=== PATIENT | female | born 1950 | race Caucasian/White ===

== ENCOUNTER 2019-05-21 00:30 | Outpatient (CLI) | payer MEDICARE, SELFPAY ==
--- NOTE | 2019-05-21 14:09 | DI.US_ITS ---
SYMPTOM/DIAGNOSIS: RUQ BD PAIN, R10.11 ABDOMINAL ULTRASOUND: Routine examination. Comparison CT scan is 12/09/14 The aorta is unremarkable. The IVC is unremarkable. The liver measures 15.1 cm in length. There is a 2.8 x 1.7 x 1.5 cm avascular hyperechoic region in the medial aspect of the right lobe of the liver. No other hepatic mass is seen sonographically. The gallbladder is unremarkable. There is a negative sonographic Flor's sign. The common duct is within normal limits at 4.6 mm. The pancreas and spleen are unremarkable. There are bilateral simple renal cysts. There is a 5.8 x 4.7 x 5.3 cm simple cyst in the superior pole of the right kidney. There is a 3.2 x 2.4 z 3.6 cm simple cyst in the left renal pelvis. These are identified on the CT scan of the abdomen from 12/09/14. IMPRESSION: 1. 2.8 cm hyperechoic avascular region in the liver. This may represent a benign lesion such as an hepatic hemangioma. Focal fatty infiltration cannot be excluded. CT scan of the abdomen without and with contrast should be considered for further evaluation. 2. Bilateral simple renal cysts.
== END 2019-05-21 00:50 ==
PROVIDERS: PCP Nurse Practitioner Family; Visit Provider Nurse Practitioner Family
DX: R10.11 Right upper quadrant pain (principal); K76.89 Other specified diseases of liver; N28.1 Cyst of kidney, acquired
CPT/HCPCS: 76700

== ENCOUNTER 2019-05-21 08:53 | Outpatient (REF) | payer MEDICARE, SELFPAY ==
[2019-05-21 22:10] LABS: ALT 28 U/L (12-78); AST 19 U/L (15-37); Albumin 3.7 g/dL (3.4-5.0); Alkaline Phosphatase 70 U/L (46-116); Anion Gap 8.4 mmol/L (3-11); BUN 17 mg/dL (7-18); Bilirubin, Direct 0.12 mg/dL (0.00-0.20); Bilirubin, Total 0.5 mg/dL (0.2-1.0); CO2 28.6 mmol/L (21.0-32.0); CREATININE 0.84 mg/dL (0.55-1.02); Calcium 9.5 mg/dL (8.5-10.1); Chloride 106 mmol/L (98-107); Glucose 75 mg/dL (70-100); Potassium 4.3 mmol/L (3.5-5.1); Sodium 143 mmol/L (136-145); Total Protein 7.3 g/dL (6.4-8.2)
[2019-05-21 22:28] LABS: Calculated LDL 143 mg/dL; Cholesterol 214 mg/dL (50-200); HDL Cholesterol 61 mg/dL (40-60); Triglyceride 53 mg/dL (30-150)
== END 2019-05-21 09:13 ==
LOC: NCHCN 08:53
PROVIDERS: PCP Nurse Practitioner Family; Visit Provider Nurse Practitioner Family
DX: R10.11 Right upper quadrant pain (principal); I10 Essential (primary) hypertension; R79.89 Other specified abnormal findings of blood chemistry; R05 Cough
CPT/HCPCS: 80048; 80061; 80076; 83721

== ENCOUNTER 2019-05-29 00:56 | Outpatient (CLI) | payer MEDICARE, SELFPAY ==
--- NOTE | 2019-05-29 13:00 | DI.CT_ITS ---
SYMPTOMS/DIAGNOSIS: RIGHT UPPER QUADRANT ABDOMINAL PAIN, R10.[address]: Comparison is made with ultrasound dated April, and abdominal CT of November,. The ultrasound showed a hyperechoic area measuring 2.8 x 1.7 x 1.5 cm. No abnormality was demonstrated on the previous CT. A 7 mm cyst is noted at the inferior edge of the medial segment of the left lobe of the liver. A few other tiny cysts less than 5 mm are visible. No mass is identified. The gallbladder, spleen, adrenals and pancreas are unremarkable. There is a cyst at the upper pole of the left kidney and parapelvic cysts involving the left kidney. There is a stone in the mid right kidney. There is no hydronephrosis of either kidney. The bladder, uterus and ovaries are unremarkable. There is diverticulosis most prominent in the sigmoid region. There is no evidence of diverticulitis. IMPRESSION: No significant liver mass is identified as was seen by ultrasound. The findings on ultrasound could be artifactual. There is an incidental 7 mm cyst.
[2019-05-29] MEDS: Omnipaque 350 MG/ML 100 ML BTL IJ (14:35)
[2019-05-29] MEDS: Omnipaque 350 MG/ML 50 ML BTL IJ (14:36)
[2019-05-29] MEDS: Breeza Beverage 473 ML BTL PO (14:37)
== END 2019-05-29 01:16 ==
PROVIDERS: PCP Nurse Practitioner Family; Visit Provider Nurse Practitioner Family
DX: R10.11 Right upper quadrant pain (principal); K76.89 Other specified diseases of liver; N28.1 Cyst of kidney, acquired; K57.30 Diverticulosis of large intestine without perforation or abscess without bleeding
CPT/HCPCS: 74177; J3490; Q9967

== ENCOUNTER 2019-12-31 11:40 | Outpatient (REF) | payer MEDICARE, SELFPAY ==
[2019-12-31 19:42] LABS: Calculated LDL 153 mg/dL (<100); Cholesterol 224 mg/dL (<200); Glucose 96 mg/dL (74-106); HDL Cholesterol 62 mg/dL (40-60); Triglyceride 49 mg/dL (<150)
[2020-01-02 12:24] LABS: Hepatitis C Ab w Rflx HCV PCR Negative (Negative)
== END 2019-12-31 12:00 ==
LOC: NCHCN 11:40
PROVIDERS: PCP Nurse Practitioner Family; Visit Provider Nurse Practitioner Family
DX: E78.5 Hyperlipidemia, unspecified (principal); Z11.59 Encounter for screening for other viral diseases
CPT/HCPCS: 80061; 82947; 86803

== ENCOUNTER 2020-05-01 00:16 | Outpatient (CLI) | payer MEDICARE, SELFPAY ==
--- NOTE | 2020-05-01 | DI.DEXA_ITS ---
EXAM: XR DEXA BONE DENSITY W/WO CESAR CLINICAL HISTORY: ASYMPTOMATIC POSTMENOPAUSAL, Z78.0 TECHNIQUE: COMPARISON: No exams were available for comparison FINDINGS: DEXA scan was performed according to the usual protocol. Please see the accompanying data sheets. F indings for lumbar spine scanning are T-score -2.2. Findings for left forearm scanning are T-score -2.8. Findings for left hip scanning are T-score -1.7 left femoral neck T-score -1.3. IMPRESSION: Findings are consistent with osteoporosis according to the WHO criteria. The lateral vertebral scanogram shows no evidence of a vertebral compression fracture.
== END 2020-05-01 00:36 ==
PROVIDERS: PCP Nurse Practitioner Family; Visit Provider Nurse Practitioner Family
DX: M81.0 Age-related osteoporosis without current pathological fracture (principal); Z78.0 Asymptomatic menopausal state
CPT/HCPCS: 77080

== ENCOUNTER 2020-06-23 08:36 | Outpatient (REF) | payer MEDICARE, SELFPAY ==
[2020-06-23 20:52] LABS: ALT 31 U/L (14-59); AST 25 U/L (15-37); Albumin 3.9 g/dL (3.4-5.0); Alkaline Phosphatase 76 U/L (46-116); Bilirubin, Total 0.4 mg/dL (0.2-1.0); Calculated LDL 128 mg/dL (<100); Cholesterol 201 mg/dL (<200); HDL Cholesterol 62 mg/dL (40-60); Total Protein 7.7 g/dL (6.4-8.2); Triglyceride 56 mg/dL (<150)
== END 2020-06-23 08:56 ==
LOC: NCHCN 08:36
PROVIDERS: PCP Nurse Practitioner Family; Visit Provider Nurse Practitioner Family
DX: E78.5 Hyperlipidemia, unspecified (principal); K76.89 Other specified diseases of liver
CPT/HCPCS: 80061; 80076

== ENCOUNTER 2020-07-28 00:48 | Outpatient (CLI) | payer MEDICARE, SELFPAY ==
--- NOTE | 2020-07-28 | DI.MAMMO_ITS ---
EXAM: MG MAMMO SCREENING CLINICAL HISTORY: SCREENING, TECHNIQUE: Mammograms were interpreted according to the usual protocol including computer analysis w [facility] CAD system, tomosynthesis and C-view imaging. COMPARISON: FINDINGS: The breasts are heterogeneously dense. There is a new mass in the 12 o'clock position in the left br east measuring about 12 millimeters in diameter which appears fairly well-circumscribed on standard i mages. Couple of smaller well-circumscribed nodules are also seen adjacent to this mass. Findings w ere not present on prior mammogram April 2018 or previous scans. No additional new mass identified. Additional mammographic views of the left breast and left breast ultrasound are requested for charact erization of the new left breast mass to assess the need for biopsy. IMPRESSION: New well-circumscribed 12 millimeter left breast mass with small well-circumscribed satellite nodules . Cc and MLO spot compression views of the left breast and left breast ultrasound recommended for fu rther evaluation. BI-RADS Cat 0 - Assessment Incomplete: Need additional imaging evaluation Breast Density - Category C - Heterogeneously dense
== END 2020-07-28 01:08 ==
PROVIDERS: PCP Nurse Practitioner Family; Visit Provider Nurse Practitioner Family
DX: Z12.31 Encounter for screening mammogram for malignant neoplasm of breast (principal); N63.25 Unspecified lump in the left breast, overlapping quadrants
CPT/HCPCS: 77063; 77067

== ENCOUNTER 2020-07-30 00:43 | Outpatient (CLI) | payer MEDICARE, SELFPAY ==
--- NOTE | 2020-07-30 | DI.US_ITS ---
EXAM: MG MAMMO SCREEN CALL BACK UNI CLINICAL HISTORY: NEW MASS 12 O'CLOCK IN LT BREAST MEASURING ABOUT 12 MILLIMETERS TECHNIQUE: Mammograms were interpreted according to the usual protocol including computer analysis w [employer] CAD system, tomosynthesis and C-view imaging. COMPARISON: FINDINGS: Additional mammographic views of the left breast and left breast ultrasound are interpreted in conjun ction. These examinations were obtained to evaluate mass with couple of small satellite nodules seen in the 12 o'clock position in the breast on recent mammogram. Additional mammographic view is confi rm well-circumscribed masses. Breast ultrasound shows a group of cysts, the largest measuring about 11 millimeters in greatest diameter, corresponding to the mammographically identified masses. These all appear to be simple cysts. No Doppler abnormality seen. IMPRESSION: Multiple left breast cysts as described above. No solid mass identified ultrasonographically. I kailey hutchinson suggest that follow-up mammogram be obtained in 12 months. BI-RADS Category 2 - Benign Findings Breast Density - Category C - Heterogeneously dense
== END 2020-07-30 01:03 ==
PROVIDERS: PCP Nurse Practitioner Family; Visit Provider Nurse Practitioner Family
DX: R92.8 Other abnormal and inconclusive findings on diagnostic imaging of breast (principal); N63.25 Unspecified lump in the left breast, overlapping quadrants
CPT/HCPCS: 76642; 77063; 77067

== ENCOUNTER 2021-03-02 13:57 | Outpatient (REF) | payer MEDICARE, SELFPAY ==
[2021-03-02 16:42] LABS: ALT 30 U/L (14-59); AST 20 U/L (15-37); Albumin 4.1 g/dL (3.4-5.0); Alkaline Phosphatase 74 U/L (46-116); Anion Gap 9.5 mmol/L (3-11); BUN 19 mg/dL (7-18); Bilirubin, Total 0.5 mg/dL (0.2-1.0); CO2 28.5 mmol/L (21.0-32.0); Calcium 9.6 mg/dL (8.5-10.1); Calculated LDL 170 mg/dL (<100); Chloride 104 mmol/L (98-107); Cholesterol 246 mg/dL (<200); Estimated GFR 54.66 (mL/min/1.73m2); Glucose 87 mg/dL (74-106); HDL Cholesterol 63 mg/dL (40-60); Potassium 4.3 mmol/L (3.5-5.1); Sodium 142 mmol/L (136-145); Total Protein 7.8 g/dL (6.4-8.2); Triglyceride 67 mg/dL (<150)
== END 2021-03-02 13:58 | disposition home or self-care (01) ==
LOC: NCHCN 13:57
PROVIDERS: PCP Nurse Practitioner Family; Visit Provider Nurse Practitioner Family
DX: E78.5 Hyperlipidemia, unspecified (principal); M79.18 Myalgia, other site; M81.0 Age-related osteoporosis without current pathological fracture
CPT/HCPCS: 80053; 80061

== ENCOUNTER 2021-05-25 11:40 | Outpatient (REF) | payer MEDICARE, SELFPAY ==
[2021-05-25 15:03] LABS: ALT 26 U/L (14-59); AST 20 U/L (15-37); HDL Cholesterol 64 mg/dL (40-60); LDL CHOLESTEROL 140 mg/dL (<100)
[2021-05-25 15:18] LABS: Creatine Kinase 93 U/L (26-192)
[2021-05-25 17:02] LABS: Vitamin D 25 Total 57.9 ng/mL (30-100)
== END 2021-05-25 11:41 | disposition home or self-care (01) ==
LOC: NCHCN 11:40
PROVIDERS: PCP Nurse Practitioner Family; Visit Provider Nurse Practitioner Family
DX: E78.5 Hyperlipidemia, unspecified (principal); M81.0 Age-related osteoporosis without current pathological fracture
CPT/HCPCS: 82306; 82550; 83721; 83718; 84450; 84460

== ENCOUNTER 2021-08-04 01:05 | Outpatient (CLI) | payer MEDICARE, SELFPAY ==
--- NOTE | 2021-08-04 | DI.MAMMO_ITS ---
Exam(s) MAMMO SCREENING EXAM: MAMMO SCREENING CLINICAL HISTORY: SCREENING,Z12.39. TECHNIQUE: Bilateral full field digital CC and MLO mammographic images were obtained with 3D tomosyn thesis and utilizing computer aided detection (CAD). COMPARISON: Prior mammograms dating back to 2011, the most recent being July 2020. Breast ultras ound 07/30/2020 was also reviewed. Study revealed left breast cysts. FINDINGS: The previously present 12 o'clock position nodule has significantly decreased in size, further eviden ce that it is a benign cyst. The larger of the 2 densities at this location (12 o'clock position) has decreased in size and the ot her adjacent smaller nodule is unchanged in size. These were both demonstrated to be adjacent cysts on the ultrasound 1 year ago. There are no new spiculated masses nor malignant appearing microcalcification groups. There is no significant architectural distortion nor skin thickening-retraction. IMPRESSION: Benign findings. No radiographic evidence of malignancy. BI-RADS Category 2 - Benign Findings Breast Density - Category B - Scattered areas of fibroglandular density Breast density Category C or D implies that the patient has dense breast tissue. Dense breast tissue can make it harder to find cancer on a mammogram. Dense breast tissue is also associated with an incr eased risk of breast cancer. This information about the result of the mammogram report was provided to the patient to raise their awareness. Use this report when you speak with the patient about their risks for breast cancer, which includes their family history. At that time, you may recommend additional screening tests (Ultrasoun d or MRI) as these tests may add significant information. A negative radiographic report should not delay biopsy if a dominant or clinically suspicious mass is present. Up to ten percent of cancers are not identified on mammography. A negative report may reinforce clinical impression. Adenosis and dense breasts may obscure an underlying neoplasm. False positive reports average 6 to 10%. Patient will receive a letter notifying them of these results.
== END 2021-08-04 01:25 ==
PROVIDERS: PCP Nurse Practitioner Family; Visit Provider Nurse Practitioner Family
DX: Z12.31 Encounter for screening mammogram for malignant neoplasm of breast (principal)
CPT/HCPCS: 77063; 77067

== ENCOUNTER 2022-08-10 22:50 | Outpatient (REF) | payer MEDICARE, SELFPAY ==
[2022-08-10 20:29] LABS: Anion Gap 10.3 mmol/L (3-11); BUN 17 mg/dL (7-18); CO2 25.7 mmol/L (21.0-32.0); CREATININE 0.9 mg/dL (0.55-1.02); Calcium 9.7 mg/dL (8.5-10.1); Calculated LDL 127 mg/dL (<100); Chloride 105 mmol/L (98-107); Cholesterol 221 mg/dL (<200); Estimated GFR 67.92 (mL/min/1.73m2); Glucose 82 mg/dL (74-106); HDL Cholesterol 67 mg/dL (40-60); Potassium 4.1 mmol/L (3.5-5.1); Sodium 141 mmol/L (136-145); Triglyceride 139 mg/dL (<150)
== END 2022-08-10 22:51 | disposition home or self-care (01) ==
LOC: NCHCN 22:50
PROVIDERS: PCP Nurse Practitioner Family; Visit Provider Nurse Practitioner Family
DX: I10 Essential (primary) hypertension (principal); E78.5 Hyperlipidemia, unspecified
CPT/HCPCS: 80048; 80061

== ENCOUNTER → 2022-09-14 01:53 | Outpatient (CLI) | payer MEDICARE, SELFPAY ==
--- NOTE | 2022-09-14 08:00 | DI.MAMMO_ITS ---
Exam(s) MAMMO SCREENING EXAM: MAMMO SCREENING CLINICAL HISTORY: SCREENING, Z12.31 TECHNIQUE: Bilateral full field digital CC and MLO mammographic images were obtained with 3D tomosyn thesis and utilizing computer aided detection (CAD). COMPARISON: Available for comparison. FINDINGS: Masses/Architectural Distortion: None seen. Microcalcifications: No suspicious pleomorphic-type are seen. Skin Thickening/Nipple Retraction: None. IMPRESSION: 1. No significant interval change with no specific features of malignancy noted. 2. Unless there is more urgent need, screening mammography is recommended, as per [employer] guidelines. BI-RADS Category 1 - Negative Breast Density - Category B - Scattered areas of fibroglandular density Breast density category C or D implies that the patient has dense breast tissue. Dense breast tissue is very common and is not abnormal but dense breast tissue can make it harder to find cancer on a ma mmogram. Also, dense breast tissue may increase their breast cancer risk. This information about the result of the mammogram report was provided to the patient to raise their awareness. Use this report when you speak with the patient about their risks for breast cancer, which includes their family hist ory. At that time, you may recommend for more screening tests (Ultrasound or MRI) as they might be us eful based on their risk. A negative radiographic report should not delay biopsy if a dominant or clinically suspicious mass is present. Up to ten percent of cancers are not identified on mammography. A negative report may reinforce clinical impression. Adenosis and dense breasts may obscure an underlying neoplasm. False positive reports average 6 to 10%. Patient will receive a letter notifying them of these results.
== END ==
PROVIDERS: PCP Nurse Practitioner Family; Visit Provider Nurse Practitioner Family
DX: Z12.31 Encounter for screening mammogram for malignant neoplasm of breast (principal)
CPT/HCPCS: 77063; 77067

== ENCOUNTER 2023-01-10 13:40 | Outpatient (REF) | payer MEDICARE, SELFPAY ==
[2023-01-10 15:43] LABS: HCT 41.8 % (36.0-46.0); MCH 29.9 pg (27.0-33.0); MCHC 33.5 % (32.0-36.0); MCV 89 fL (80-95); MPV 10.1 fL (8.0-11.0); Platelet Count 281 10^3/uL (130-400); RBC 4.68 10^6/uL (3.93-5.22); RDW 12.9 % (11.7-14.6); RDW-SD 42.5 fL; WBC 5.16 10^3/uL (4.4-10.8)
== END 2023-01-10 13:41 | disposition home or self-care (01) ==
LOC: NCHCN 13:40
PROVIDERS: PCP Nurse Practitioner Family; Visit Provider Nurse Practitioner Family
DX: R11.10 Vomiting, unspecified (principal); R19.7 Diarrhea, unspecified
CPT/HCPCS: 85027

== ENCOUNTER 2023-11-08 12:32 | Outpatient (REF) | payer MEDICARE, SELFPAY ==
[2023-11-08 16:04] LABS: ALT 27 U/L (14-59); AST 18 U/L (15-37); Albumin 3.9 g/dL (3.4-5.0); Alkaline Phosphatase 58 U/L (46-116); Anion Gap 7.5 mmol/L (3-11); BUN 18 mg/dL (7-18); Bilirubin, Total 0.3 mg/dL (0.2-1.0); CO2 28.5 mmol/L (21.0-32.0); Calcium 9.7 mg/dL (8.5-10.1); Chloride 103 mmol/L (98-107); Estimated GFR 59.49 (mL/min/1.73m2); Glucose 97 mg/dL (74-106); HDL Cholesterol 75 mg/dL (40-60); LDL CHOLESTEROL 125 mg/dL (<100); Potassium 3.9 mmol/L (3.5-5.1); Sodium 139 mmol/L (136-145); TSH 1.26 uIU/mL (0.36-3.74); Total Protein 7.9 g/dL (6.4-8.2)
[2023-11-08 16:17] LABS: Creatine Kinase 96 U/L (26-192)
== END 2023-11-08 12:33 | disposition home or self-care (01) ==
LOC: NCHCN 12:32
PROVIDERS: PCP Nurse Practitioner Family; Visit Provider Nurse Practitioner Family
DX: I10 Essential (primary) hypertension (principal); E78.5 Hyperlipidemia, unspecified
CPT/HCPCS: 80053; 82550; 83721; 83718; 84443

== ENCOUNTER → 2023-11-15 03:22 | Outpatient (CLI) | payer MEDICARE, SELFPAY ==
--- NOTE | 2023-11-15 | DI.MAMMO_ITS ---
Exam(s) MAMMO SCREENING EXAM: MAMMO SCREENING CLINICAL HISTORY: SCREENING,Z12.31 TECHNIQUE: Bilateral full field digital CC and MLO mammographic images were obtained with 3D tomosyn thesis and utilizing computer aided detection (CAD). COMPARISON: Available for comparison. FINDINGS: Masses/Architectural Distortion: None seen. Microcalcifications: No suspicious pleomorphic-type are seen. Skin Thickening/Nipple Retraction: None. IMPRESSION: 1. No significant interval change with no specific features of malignancy noted. 2. Unless there is more urgent need, screening mammography is recommended, as per [employer] guidelines. BI-RADS Category 1 - Negative Breast Density - Category B - Scattered areas of fibroglandular density Breast density category C or D implies that the patient has dense breast tissue. Dense breast tissue is very common and is not abnormal but dense breast tissue can make it harder to find cancer on a ma mmogram. Also, dense breast tissue may increase their breast cancer risk. This information about the result of the mammogram report was provided to the patient to raise their awareness. Use this report when you speak with the patient about their risks for breast cancer, which includes their family hist ory. At that time, you may recommend for more screening tests (Ultrasound or MRI) as they might be us eful based on their risk. A negative radiographic report should not delay biopsy if a dominant or clinically suspicious mass is present. Up to ten percent of cancers are not identified on mammography. A negative report may reinforce clinical impression. Adenosis and dense breasts may obscure an underlying neoplasm. False positive reports average 6 to 10%. Patient will receive a letter notifying them of these results.
== END ==
PROVIDERS: PCP Nurse Practitioner Family; Visit Provider Nurse Practitioner Family
DX: Z12.31 Encounter for screening mammogram for malignant neoplasm of breast (principal)
CPT/HCPCS: 77063; 77067

== ENCOUNTER 2025-04-08 17:17 | Outpatient (REF) | payer MEDICARE, SELFPAY ==
[2025-04-08 17:10] LABS: Albumin 3.9 g/dL (3.4-5.0); Alkaline Phosphatase 79 U/L (46-116); Anion Gap 10.7 mmol/L (3-11); BUN 18 mg/dL (7-18); Bilirubin, Total 0.5 mg/dL (0.2-1.0); CO2 26.3 mmol/L (21.0-32.0); Calcium 9.3 mg/dL (8.5-10.1); Calculated LDL 150 mg/dL (<100); Chloride 103 mmol/L (98-107); Cholesterol 237 mg/dL (<200); Estimated GFR 58.75 (mL/min/1.73m2); Glucose 102 mg/dL (74-106); HDL Cholesterol 76 mg/dL (>or=50); Potassium 3.8 mmol/L (3.5-5.1); Sodium 140 mmol/L (136-145); Total Protein 7.6 g/dL (6.4-8.2); Triglyceride 57 mg/dL (<150)
[2025-04-08 17:11] LABS: ALT 32 U/L (14-59); AST 26 U/L (15-37); TSH (W/Ref FT4) 1.17 uIU/mL (0.36-3.74)
[2025-04-08 17:17] LABS: Hemoglobin A1C 5.5 % (<5.7)
== END 2025-04-08 17:18 | disposition home or self-care (01) ==
LOC: NCHCN 17:17
PROVIDERS: Visit Provider Nurse Practitioner Family
DX: E78.5 Hyperlipidemia, unspecified (principal); E04.9 Nontoxic goiter, unspecified; Z00.00 Encounter for general adult medical examination without abnormal findings
CPT/HCPCS: 80053; 80061; 83036; 84443

== ENCOUNTER 2025-05-03 00:19 | Outpatient (CLI) | payer MEDICARE, SELFPAY ==
--- NOTE | 2025-05-03 | DI.US_ITS ---
Exam(s) US THYROID EXAM: US THYROID CLINICAL HISTORY: Enlarged thyroid, nontoxic goiter, E04.9. TECHNIQUE: Ultrasound thyroid performed using standard protocol. COMPARISON: US US BREAST LT LIMITED from 07/30/2020 FINDINGS: Thyroid gland size is upper normal. There are multiple nodules and cysts in both lobes. We characterized the 2 most significant nodules in each lobe. RIGHT THYROID LOBE: Measures 1.3 cm AP x 1.8 cm wide x 5.3 cm craniocaudal Nodule #1 Size: Measures 1.6 x 0.8 x 0.9 cm Composition: Mixed [id number] point Echogenicity: Solid components are isoechoic to gland-1 point Shape: Wider than taller-0 points Margin: Smooth- 0 points Echogenic Foci: Contains punctate echogenic foci-3 points Total Points for this nodule: 5 ACR Ti-Rads Category: TR4 This TR 4 level nodule requires ultrasound-guided FNA as it measures greater than 1.5 cm. Nodule #2 this nodule is located just medial to the other nodule described above Size: Measures 1.5 x 0.6 x 1.0 cm Composition: Solid-2 points Echogenicity: Isoechoic-1 point Shape: Wider than taller- 0 points Margin: Smooth-0 points Echogenic Foci: Contains punctate echogenic foci-3 points Total points for this nodule: 6 ACR Ti-Rads Category: TR4 This TR 4 level nodule requires ultrasound-guided FNA as it measures 1.5 cm ISTHMUS: Normal thickness. There are no nodules in the isthmus. LEFT THYROID LOBE: Measures 2.8 cm AP x 2.8 wide x 6.1 cm craniocaudal Nodule #1 Size: Measures 1.2 x 0.9 x 1.2 cm Composition: Solid-2 points Echogenicity: Isoechoic-1 points Shape: Wider than taller in the transverse plane-0 points Margin: Smooth-0 points Echogenic Foci: Contains a combination of both punctate echogenic foci and as well as a macrocalcification-4 points Total points for this nodule: 7 ACR Ti-Rads Category: 5 This TR 5 level nodule requires ultrasound-guided FNA as it measures greater than 1 cm. Nodule #2 Size: Measures 2.8 x 1.2 x 1.6 cm Composition: Mixed [id number]-5 point Echogenicity: Isoechoic-1 point Shape: Wider than taller in the transverse plane-0 points Margin: Smooth-0 points Echogenic Foci: Contains punctate echogenic foci- 3 points Total Points for this nodule: 5 ACR Ti-Rads Category: 4 This TR 4 level nodule requires ultrasound-guided FNA as it measures greater than 1.5 cm. LYMPH NODES: There is no significant adenopathy. IMPRESSION: 1. There are multiple nodules and cysts noted in both thyroid lobes. We scanned the most concerning looking focal nodules in each lobe, which amounted to 2 nodules in each lobe. Each of these nodules is graded individually above 2. All 4 nodules (2 in each lobe) classify as requiring ultrasound-guided FNA. 3. There is no significant lymphadenopathy. DATA REPOSITORY:
--- NOTE | 2025-05-03 14:09 | DI.MAMMO_ITS ---
Exam(s) MAMMO SCREENING EXAM: MAMMO SCREENING CLINICAL HISTORY: Screening, Z12.31. TECHNIQUE: Bilateral full field digital CC and MLO mammographic images were obtained with 3D tomosynthesis and utilizing computer aided detection (CAD). COMPARISON: Prior mammograms were reviewed. FINDINGS: There has been no significant change in the appearance and distribution of the fibroglandular tissue. There are no new spiculated masses nor malignant appearing microcalcification groups. There is no significant architectural distortion nor skin thickening-retraction. IMPRESSION: No radiographic evidence of malignancy. BI-RADS Category 1 - Negative Breast Density - Category B - There are scattered areas of fibroglandular density. Breast density Category C or D implies that the patient has dense breast tissue. Dense breast tissue can make it harder to find cancer on a mammogram. Dense breast tissue is also associated with an increased risk of breast cancer. This information about the result of the mammogram report was provided to the patient to raise their awareness. Use this report when you speak with the patient about their risks for breast cancer, which includes their family history. At that time, you may recommend additional screening tests (Ultrasound or MRI) as these tests may add significant information. A negative radiographic report should not delay biopsy if a dominant or clinically suspicious mass is present. Up to ten percent of cancers are not identified on mammography. A negative report may reinforce clinical impression. Adenosis and dense breasts may obscure an underlying neoplasm. False positive reports average 6 to 10%. Patient will receive a letter notifying them of these results.
--- NOTE | 2025-05-03 14:30 | DI.DEXA_ITS ---
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 Lateral survey image of the thoracic and lumbar spine. COMPARISON: CR XR DEXA BONE DENSITY W/WO CESAR from 05/01/2020 FINDINGS: Lateral view of the thoracic and lumbar spine shows no evidence of compression fractures. Bone mineral density measurements of the lumbar spine correspond to a total T- score of -2.2, in the osteopenic range. This is unchanged from the prior exam. Bone mineral density measurements of the left hip correspond to a total T-score of -1.7. This is not changed from the previous exam.. The femoral neck T- score is -1.6, in the osteopenic range.. Theleft forearm bone mineral density measurements correspond to a T-score of the distal 3rd of -3.4, in the osteoporotic range. This represents a 7.1 percent decrease from 2020.. IMPRESSION: Osteoporosis of the left forearm. Osteopenia of the spine and hip.
== END 2025-05-03 00:39 ==
LOC: DI 00:20
PROVIDERS: PCP Nurse Practitioner Family; Visit Provider Nurse Practitioner Family
DX: M81.0 Age-related osteoporosis without current pathological fracture (principal); Z12.31 Encounter for screening mammogram for malignant neoplasm of breast; E04.9 Nontoxic goiter, unspecified
CPT/HCPCS: 77063; 77067; 77080; 76536

== ENCOUNTER 2025-06-18 02:14 | Outpatient (CLI) | payer MEDICARE, SELFPAY ==
--- NOTE | 2025-06-18 07:15 | DI.US_ITS ---
Exam(s) US NEEDLE LOCAL OTHER WO RAD EXAM: thyroid nodules,ULTRASOUND GUIDED BX,E04.2 COMPARISON: No exams were available for comparison TECHNIQUE: Ultrasound performed using standard protocol. FINDINGS: Sonography was provided for Dr. Dickerson during the performance of a biopsy of 2 left thyroid nodules. Please refer to the procedure report for complete details. DATA REPOSITORY:
--- NOTE | 2025-06-18 12:25 | PAPNONF_PTH ---
PATIENT: Tricia Deras LOC: [facility] U#:[id number] AGE/SX: 74/F ROOM: RE06/18/[address]: Ekaterina Ashraf : 1950 BED: DIS: 06/18/2025 SPEC #: [id number] RECD: 06/18/25 13:31 STATUS: SAIMA REEddie #: [id number] MURRAY: 06/18/25 12:[address]: Ekaterina Ashraf [facility]PT[facility] Cytology RECD BY: Enid Daily ENTERED: 06/18/25 13:32 SP TYPE: HAL OROZCO DR: Deirdre Alan Tissues: 1 - BODY FLUID CYTO-FINE NEEDLE [facility] 2 - BODY FLUID CYTO-FINE NEEDLE [facility]ATE[facility] Procedures: BODY FLUID CYTO-FINE NEEDLE ASPIRATE[facility] Comments: [id number] (PATH FNA CONSULT) (REFRIGERATED)
--- NOTE | 2025-06-18 13:16 | W.PROCNOTE ---
Date of service: 06/18/25 Time of Service: 13:16 Procedure Note Date of procedure: 06/18/25 Procedure: FNA left thyroid nodule x 2, pathology present, ultrasound-guided Procedure Diagnosis: Multinodular thyroid Procedure Indications: I reviewed the findings with the patient. We reviewed that she has multiple nodules on both sides of her thyroid. After discussion, the decision was made to biopsy the 2 nodules that meet criteria for biopsy on the left and to not biopsy the ones that may criterion the right as well they meet in 1 dimension, they are much smaller than criteria in the other 2 and the patient concurred. We did discuss that we will follow the other nodules with ultrasound. Written consent was obtained after discussing the procedure with the patient. The below was then performed. Procedure Description: The patient was positioned in a supine position with her neck slightly extended. She was prepped and draped in appropriate fashion. 2% lidocaine with 1/100,000 epinephrine was injected over the medial aspect of each nodule. Ultrasound was then used to guide a 25-gauge needle into the thyroid nodules in question. 2 passes were required into each to the cellular adequacy. Once cellular adequacy had been verified for each nodule by pathology, 2 additional passes were made into each nodule for potential Afirma testing. After ensuring adequate hemostasis, a sterile dressing was applied to the biopsy sites and the patient was allowed to sit, stand, and then ambulate. Her vital signs remained stable. She may use Tylenol or ibuprofen for any discomfort. She will remove the bandage in a couple of hours and not replace it. She will call with any signs of infection or if she does not hear from us with regard to pathology results within 1 week. Further care will depend upon the findings. She will avoid anything strenuous today. She will avoid heavy lifting.
== END 2025-06-18 02:34 ==
LOC: DI 02:15
PROVIDERS: PCP Nurse Practitioner Family; Visit Provider Registered Nurse Maternal Newborn
DX: E04.2 Nontoxic multinodular goiter (principal)
CPT/HCPCS: 10005; 10006; 76942; 88104

== ENCOUNTER 2025-09-27 16:42 | Outpatient (REF) | payer MEDICARE, SELFPAY ==
[2025-09-27 18:21] LABS: Cholesterol 225 mg/dL (<200); HDL Cholesterol 71 mg/dL (>40)
== END 2025-09-27 16:43 | disposition home or self-care (01) ==
LOC: NCHCN 16:42
PROVIDERS: PCP Nurse Practitioner Family; Visit Provider Nurse Practitioner Family
DX: E78.5 Hyperlipidemia, unspecified (principal)
CPT/HCPCS: 80061